=== PATIENT | male | born 1985 | race Caucasian/White ===

== ENCOUNTER 2023-11-19 16:11 | Emergency (ER) | payer SELFPAY ==
[2023-11-19 16:14] VITALS: BP 134/91
[2023-11-19] MEDS: MOTRIN 600 MG PO (17:58)
[2023-11-19 19:17] VITALS: BP 132/85
[2023-11-19 19:45] VITALS: BP 132/85
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
== END 2023-11-19 19:46 | disposition home or self-care (01) ==
LOC: EMR 16:11
PROVIDERS: EMERGENCY PHYSICIAN Emergency Medicine
DX: S39.012A Strain of muscle, fascia and tendon of lower back, initial encounter (principal); V43.52XA Car driver injured in collision with other type car in traffic accident, initial encounter
CPT/HCPCS: 99283; 72110; 72220